=== PATIENT | female | born 2000 | race Caucasian/White ===

== ENCOUNTER 2024-06-14 11:27 | Emergency (ER) | payer BC ==
[~2024-06-14] VITALS: Ht 162.6 cm; Wt 63.5 kg
[2024-06-14] MEDS ORDERED: PROZAC40 MG (12:18)
[2024-06-14] MEDS ORDERED: KETOROLAC TROMETHAMINE 30 MG VIAL IM STA (13:59)
[2024-06-14] MEDS ORDERED: CEFTRIAXONE SODIUM 1,000 MG VIAL IM STA (13:59)
[2024-06-14 14:48] LABS: HEMOGLOBIN 12.9 g/dL (12.0-15.00); MEAN CELL VOLUME 93.4 fL (80.00-100.00); MEAN CORPUSCULAR HEMOGLOBIN 31.7 pg (27.00-32.0); MEAN CORPUSCULAR HGB CONC 33.9 g/dl (32.0-36.0); PLATELET COUNT 329 K/uL (150-450); RED BLOOD COUNT 4.07 M/uL (4.00-6.00); RED CELL DISTRIBUTION WIDTH 13.4 % (11.5-14.5)
[2024-06-14] MEDS ORDERED: AMOX-CLAV 875-1 EACH PO (15:37)
[2024-06-14] MEDS ORDERED: NABUMETONE500 MG PO (15:37)
[2024-06-14] MEDS ORDERED: INTESTINEX680 M1 PO (15:37)
== END 2024-06-14 15:45 | disposition home or self-care (01) ==
LOC: ER 11:27
PROVIDERS: General Practice
DX: L03.90 Cellulitis, unspecified (principal); L97.519 Non-pressure chronic ulcer of other part of right foot with unspecified severity